=== PATIENT | female | born 1990 | race Caucasian/White ===

== ENCOUNTER 2017-02-27 07:21 | Emergency (ER) | payer OTHER ==
[~2017-02-27] VITALS: Ht 167.6 cm; Wt 52.0 kg
[~2017-02-27 07:21] MED LIST: Z.0.BCPILL PO; Z.0.NO CURRENT MEDS
[2017-02-27 07:23] VITALS: BP 109/72; PULSE 106; RESP 20; TEMP 98; O2SAT 100
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
[2017-02-27] MEDS ORDERED: SODIUM CHLOR 0.9% 1000 ML INJ 1,000 ML IV ONE (07:45)
[2017-02-27] MEDS ORDERED: KETOROLAC TROMETHAMINE 30 MG/ML (IVP) VIAL IV PUSH ONE (07:45)
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
[2017-02-27 08:17] LABS: AUTOMATED NEUTROPHIL # 3.3 TH/MM3 (1.8-7.7); BASOPHIL % 0.7 % (0.0-2.0); EOSINOPHIL # 0.2 TH/MM3 (0-0.4); EOSINOPHIL % 3.1 % (0.0-4.0); HEMATOCRIT 38.4 % (35.0-46.0); HEMO FLAGS DIFF FINAL; LYMPH % 33.9 % (9.0-44.0); MEAN CELL VOLUME 97.6 FL (80.0-100.0); MEAN CORPUSCULAR HEMOGLOBIN 33.7 PG (27.0-34.0); MEAN CORPUSCULAR HGB CONC 34.5 % (32.0-36.0); MONO % 4.4 % (0.0-8.0); NEUT % 57.9 % (16.0-70.0); PLATELET COUNT 208 TH/MM3 (150-450); RED BLOOD COUNT 3.94 MIL/MM3 (4.00-5.30); WHITE BLOOD COUNT 5.8 TH/MM3 (4.0-11.0)
[2017-02-27 08:40] LABS: BICARBONATE 27.5 MEQ/L (21.0-32.0); POTASSIUM 3.9 MEQ/L (3.5-5.1)
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
[2017-02-27 09:16] VITALS: BP 96/56; PULSE 93; RESP 16; O2SAT 100
[2017-02-27 09:27] VITALS: RESP 18
[2017-02-27 09:55] LABS: BLOOD, URINE NEG (NEG); COMMENT (UR) CULT NOT INDICATED; CULTURE IF INDICATED CULT NOT INDICATED; GLUCOSE,URINE NEG (NEG); KETONE, URINE NEG (NEG); MUCUS URINE FEW /lpf (OCC); NITRITE,URINE NEG (NEG); PH, URINE 6.5 (5.0-8.5); SQUAMOUS EPITHELIAL CELL URINE 2 /hpf (0-5); URINE COLOR YELLOW (YELLW/STRAW)
[2017-02-27] MEDS ORDERED: CYCL5TAB PO (10:07)
[2017-02-27] MEDS ORDERED: IBUP-232 PO (10:07)
== END 2017-02-27 10:55 | disposition home or self-care (01) ==
LOC: NEPE 07:21
DX: S13.4XXA Sprain of ligaments of cervical spine, initial encounter (principal); V43.52XA Car driver injured in collision with other type car in traffic accident, initial encounter; Y92.414 Local residential or business street as the place of occurrence of the external cause
CPT/HCPCS: 70450; 71010; 72125; 80048; 80307; 81001; 85025; 96361; 96374; 99285; J1885; J7030